=== PATIENT | female | born 1955 | race Caucasian/White ===

== ENCOUNTER 2022-12-15 14:39 | Inpatient (IN) | payer MEDICARE, BC ==
[2022-12-15 15:33] LABS: BASOPHILS ABSOLUTE AUTO 0.01 K/mm3 (0.01-0.08); BASOPHILS PERCENT AUTO 0.1 % (0.1-1.2); EOSINOPHILS ABSOLUTE AUTO 0.04 K/mm3 (0.04-0.36); EOSINOPHILS PERCENT AUTO 0.5 (0.7-5.8); HEMATOCRIT 43.6 % (34.1-44.9); IMMATURE GRAN ABSOLUTE AUTO 0.01 K/mm3 (0.00-0.10); IMMATURE GRAN PERCENT AUTO 0.1 % (<=1.0); LYMPHOCYTES ABSOLUTE AUTO 2.99 K/mm3 (1.18-3.74); LYMPHOCYTES PERCENT AUTO 39.8 % (19.3-51.7); MEAN CORPUSCULAR HEMOGLOBIN 29.5 pg (25.6-32.2); MEAN CORPUSCULAR HGB CONC 34.4 g/dl (32.2-35.5); MEAN CORPUSCULAR VOLUME 85.7 fl (79.4-94.8); MEAN PLATELET VOLUME 11.5 fl (9.4-12.3); MONOCYTES ABSOLUTE AUTO 0.62 K/mm3 (0.24-0.36); MONOCYTES PERCENT AUTO 8.3 % (4.7-12.5); NEUTROPHILS ABSOLUTE AUTO 3.84 K/mm3 (1.56-6.13); NEUTROPHILS PERCENT AUTO 51.2 % (34.0-71.1); PLATELET COUNT,PLT 216 K/mm3 (182-369); RED BLOOD CELL COUNT 5.09 M/mm3 (3.98-5.22); WHITE BLOOD CELL COUNT,WBC 7.51 K/mm3 (3.98-10.04)
[2022-12-15 15:49] LABS: ALANINE AMINOTRANSFERASE,ALT 43 U/L (14-59); ALBUMIN 3.9 g/dl (3.4-5.0); ALKALINE PHOSPHATASE 54 U/L (46-116); ANION GAP 16.5 (5-15); ASPARTATE AMNIOTRANSFERASE,AST 23 U/L (15-37); BILIRUBIN TOTAL 0.8 mg/dL (0.2-1.0); BLOOD UREA NITROGEN,BUN 29 mg/dL (7-18); BUN/CREATININE RATIO 18.1 (14-18); CALCIUM 10.2 mg/dL (8.5-10.1); CARBON DIOXIDE,CO2 25 mEq/L (21-32); CHLORIDE,CL 100 mEq/L (98-107); CREATININE 1.6 mg/dL (0.55-1.02); ESTIMATED GFR 35 mL/min (>60); GLUCOSE RANDOM 142 mg/dL (70-99); MAGNESIUM 1.7 mg/dL (1.8-2.4); POTASSIUM,K 3.5 mEq/L (3.5-5.1); SODIUM,NA 138 mEq/L (136-145); TROPONIN I HIGH SENSITIVITY 10 pg/mL (<=51); TSH 1.097 uIU/mL (0.358-3.74)
[2022-12-15 17:07] LABS: APPEARANCE,URINE CLEAR (Clear); BILIRUBIN,URINE NEGATIVE (Negative); COLOR,URINE YELLOW (Yellow); GLUCOSE,URINE NEGATIVE (Negative); KETONES,URINE NEGATIVE (Negative); LEUKOCYTE ESTERASE,URINE NEGATIVE (Negative); NITRITE,URINE NEGATIVE (Negative); OCCULT BLOOD,URINE NEGATIVE (Negative); PROTEIN,URINE NEGATIVE (Negative); UROBILINOGEN,URINE 0.2 (0.2-1.0)
[2022-12-15] MEDS ORDERED: Zolpidem 5 MG Tab PO PRN (17:44)
[2022-12-15] MEDS ORDERED: Docusate Sodium 100 MG Cap PO PRN (17:44)
[2022-12-15] MEDS ORDERED: oxyCODONE 5 MG Tab PO PRN (17:44)
[2022-12-15] MEDS ORDERED: Acetaminophen 325 MG Tab PO PRN (17:54)
[2022-12-15] MEDS ORDERED: Zolpidem 10 MG Tab PO PRN (17:54)
[2022-12-15] MEDS ORDERED: tiZANidine 4 MG Tab PO PRN (17:54)
[2022-12-15] MEDS ORDERED: Promethazine 25 MG Tab PO PRN (17:54)
[2022-12-15] MEDS ORDERED: Enoxaparin 40 MG/0.4 ML Syringe SUBCUT SCH (21:00)
[2022-12-15] MEDS ORDERED: amLODIPine 5 MG Tab PO SCH ×2 (22:00→22:29)
[2022-12-15] MEDS ORDERED: Sodium Bicarbonate 650 MG Tab PO SCH (22:00)
[2022-12-15] MEDS ORDERED: Carvedilol 6.25 MG Tab PO SCH (22:00)
[2022-12-15] MEDS ORDERED: Carvedilol 6.25 MG Tab ***OWN MED PO SCH (22:28)
[2022-12-15] MEDS ORDERED: Sodium Bicarbonate 650 MG Tab PO ONE (23:00)
[2022-12-15] MEDS ORDERED: ANASTROZOLE 1 MG PO ONE (23:00)
[2022-12-15] MEDS ORDERED: ZOLPIDEM 10 MG PO PRN (23:04)
[2022-12-15] MEDS ORDERED: Insulin Glargine,Human Rec. Analog 100 Units/ML 3 ML Pen SUBCUT ONE (23:15)
[2022-12-15] MEDS ORDERED: Diltiazem 125 MG in Sodium Chloride 0.9% 100 ML IV SCH (23:30)
[2022-12-16 05:32] LABS: ANION GAP 14.3 (5-15); BUN/CREATININE RATIO 18.7 (14-18); CALCIUM 9.5 mg/dL (8.5-10.1); CREATININE 1.5 mg/dL (0.55-1.02); EST CRCL DRUG DOSING (CG) 31.43 mL/min; POTASSIUM,K 3.3 mEq/L (3.5-5.1)
[2022-12-16 05:57] LABS: HEMATOCRIT 40.6 % (34.1-44.9); MEAN CORPUSCULAR HEMOGLOBIN 29.9 pg (25.6-32.2); MEAN CORPUSCULAR HGB CONC 34.5 g/dl (32.2-35.5); MEAN CORPUSCULAR VOLUME 86.6 fl (79.4-94.8); MEAN PLATELET VOLUME 11.4 fl (9.4-12.3); PLATELET COUNT,PLT 200 K/mm3 (182-369); RED BLOOD CELL COUNT 4.69 M/mm3 (3.98-5.22); WHITE BLOOD CELL COUNT,WBC 5.36 K/mm3 (3.98-10.04)
[2022-12-16] MEDS ORDERED: amLODIPine 5 MG Tab PO SCH (07:08)
[2022-12-16] MEDS ORDERED: Hydrochlorothiazide 12.5 MG Cap PO SCH (09:00)
[2022-12-16] MEDS ORDERED: Nortriptyline 10 MG Cap PO SCH (09:00)
[2022-12-16] MEDS ORDERED: Oxybutynin 5 MG Tab PO SCH ×2 (09:00)
[2022-12-16] MEDS: Carvedilol 6.25 MG Tab PO SCH ×2 (10:58→20:28)
[2022-12-16] MEDS: Aspirin 81 MG Tab.EC PO SCH (10:59)
[2022-12-16] MEDS: Sodium Bicarbonate 650 MG Tab PO SCH ×2 (10:59→20:28)
[2022-12-16] MEDS: Diltiazem IR 30 MG Tab PO SCH ×3 (13:02→23:36)
[2022-12-16] MEDS: METFORMIN HCL PO SCH (13:07)
[2022-12-16] MEDS: SITAGLIPTIN PHOS PO SCH (13:07)
[2022-12-16] MEDS: Potassium Chloride 20 MEQ Tab.ER PO SCH (14:39)
[2022-12-16] MEDS ORDERED: LYSINE 600 MG PO PRN (16:51)
[2022-12-16] MEDS: Apixaban 5 MG Tab PO SCH ×2 (18:18→23:34)
[2022-12-16] MEDS: Fenofibrate Nanocrystallized 145 MG Tab PO SCH (20:28)
[2022-12-16] MEDS: Anastrozole 1 MG Tab PO SCH (20:28)
[2022-12-16] MEDS: atorvaSTATin 40 MG Tab PO SCH (20:28)
[2022-12-16] MEDS: Oxybutynin 5 MG Tab PO SCH (20:29)
[2022-12-16] MEDS: Nortriptyline 10 MG Cap PO SCH (20:29)
[2022-12-16] MEDS: Furosemide 20 MG Tab PO SCH (20:29)
[2022-12-16] MEDS: amLODIPine 5 MG Tab PO SCH (20:29)
[2022-12-16] MEDS: Zolpidem 10 MG Tab PO PRN (20:30)
[2022-12-16] MEDS: Insulin Glargine,Human Rec. Analog 100 Units/ML 3 ML Pen SUBCUT SCH (20:39)
[2022-12-16] MEDS ORDERED: Semaglutide [Rybelsus] 7 MG Tablet PO SCH (21:00)
[2022-12-16] MEDS: Acetaminophen/HYDROcodone 325-5 MG Tab PO PRN (23:36)
[2022-12-17] MEDS: SITAGLIPTIN PHOS PO SCH (02:25)
[2022-12-17] MEDS: METFORMIN HCL PO SCH (02:25)
[2022-12-17] MEDS: Diltiazem IR 30 MG Tab PO SCH ×4 (06:17→23:36)
[2022-12-17] MEDS ORDERED: Sodium Chloride 0.9% 1,000 ML IV ONE (07:46)
[2022-12-17] MEDS: Carvedilol 6.25 MG Tab PO SCH ×2 (09:35→20:56)
[2022-12-17] MEDS: Sodium Bicarbonate 650 MG Tab PO SCH ×2 (09:37→20:59)
[2022-12-17] MEDS: Aspirin 81 MG Tab.EC PO SCH (09:37)
[2022-12-17] MEDS: Potassium Chloride 20 MEQ Tab.ER PO SCH (09:37)
[2022-12-17] MEDS: Apixaban 5 MG Tab PO SCH ×2 (09:37→20:56)
[2022-12-17] MEDS: Nortriptyline 10 MG Cap PO SCH (20:55)
[2022-12-17] MEDS: Furosemide 20 MG Tab PO SCH (20:56)
[2022-12-17] MEDS: atorvaSTATin 40 MG Tab PO SCH (20:56)
[2022-12-17] MEDS: amLODIPine 5 MG Tab PO SCH (20:58)
[2022-12-17] MEDS: Insulin Glargine,Human Rec. Analog 100 Units/ML 3 ML Pen SUBCUT SCH (20:59)
[2022-12-17] MEDS: Fenofibrate Nanocrystallized 145 MG Tab PO SCH (20:59)
[2022-12-17] MEDS: Zolpidem 10 MG Tab PO PRN (21:16)
[2022-12-17] MEDS: Anastrozole 1 MG Tab PO SCH (21:24)
[2022-12-17] MEDS: Oxybutynin 5 MG Tab PO SCH (21:25)
[2022-12-17] MEDS: Acetaminophen/HYDROcodone 325-5 MG Tab PO PRN (23:35)
[2022-12-18 05:55] LABS: BASOPHILS ABSOLUTE AUTO 0.02 K/mm3 (0.01-0.08); BASOPHILS PERCENT AUTO 0.3 % (0.1-1.2); EOSINOPHILS ABSOLUTE AUTO 0.04 K/mm3 (0.04-0.36); EOSINOPHILS PERCENT AUTO 0.7 (0.7-5.8); HEMATOCRIT 38.8 % (34.1-44.9); LYMPHOCYTES ABSOLUTE AUTO 3.04 K/mm3 (1.18-3.74); LYMPHOCYTES PERCENT AUTO 50.1 % (19.3-51.7); MEAN CORPUSCULAR HEMOGLOBIN 29.7 pg (25.6-32.2); MEAN CORPUSCULAR HGB CONC 33.5 g/dl (32.2-35.5); MEAN CORPUSCULAR VOLUME 88.6 fl (79.4-94.8); MEAN PLATELET VOLUME 11.6 fl (9.4-12.3); MONOCYTES ABSOLUTE AUTO 0.63 K/mm3 (0.24-0.36); MONOCYTES PERCENT AUTO 10.4 % (4.7-12.5); NEUTROPHILS ABSOLUTE AUTO 2.34 K/mm3 (1.56-6.13); NEUTROPHILS PERCENT AUTO 38.5 % (34.0-71.1); PLATELET COUNT,PLT 186 K/mm3 (182-369); RED BLOOD CELL COUNT 4.38 M/mm3 (3.98-5.22); WHITE BLOOD CELL COUNT,WBC 6.07 K/mm3 (3.98-10.04)
[2022-12-18 05:57] LABS: A/G RATIO 0.9 (1-2); ALBUMIN 3.2 g/dl (3.4-5.0); ANION GAP 11.7 (5-15); BILIRUBIN TOTAL 0.4 mg/dL (0.2-1.0); CALCIUM 8.7 mg/dL (8.5-10.1); CREATININE 1.3 mg/dL (0.55-1.02); EST CRCL DRUG DOSING (CG) 36.26 mL/min; MAGNESIUM 2.1 mg/dL (1.8-2.4); POTASSIUM,K 3.7 mEq/L (3.5-5.1); PROTEIN TOTAL,TP 6.6 g/dl (6.4-8.2)
[2022-12-18] MEDS ORDERED: Semaglutide [Rybelsus] 7 MG Tablet PO SCH (06:00)
[2022-12-18] MEDS: Diltiazem IR 30 MG Tab PO SCH ×2 (06:31→12:53)
[2022-12-18] MEDS: Sodium Bicarbonate 650 MG Tab PO SCH (09:19)
[2022-12-18] MEDS: Carvedilol 6.25 MG Tab PO SCH (09:19)
[2022-12-18] MEDS: Potassium Chloride 20 MEQ Tab.ER PO SCH (09:19)
[2022-12-18] MEDS: Apixaban 5 MG Tab PO SCH (09:19)
[2022-12-18] MEDS: Aspirin 81 MG Tab.EC PO SCH (09:19)
[2022-12-18] MEDS ORDERED: Diltiazem 180 MG Cap.CD PO ONE (12:00)
[2022-12-18 14:46] VITALS: BP 119/85; PULSE 82
== END 2022-12-18 13:40 | disposition home or self-care (01) | DRG 310 ==
LOC: JD.ED 14:39 → JD.MS 18:27 → OBSVTOIN 23:48 → JD.ICU 23:49 → JD.MS 12-17 12:04
PROVIDERS: ADMIT Hospitalist; ATTEND Hospitalist
DX: I48.91 Unspecified atrial fibrillation (principal); E66.9 Obesity, unspecified; E11.22 Type 2 diabetes mellitus with diabetic chronic kidney disease; I12.9 Hypertensive chronic kidney disease with stage 1 through stage 4 chronic kidney disease, or unspecified chronic kidney disease; E78.5 Hyperlipidemia, unspecified; N18.30 Chronic kidney disease, stage 3 unspecified; K21.9 Gastro-esophageal reflux disease without esophagitis; M19.90 Unspecified osteoarthritis, unspecified site; E86.0 Dehydration; Z98.890 Other specified postprocedural states; Z79.82 Long term (current) use of aspirin; Z79.899 Other long term (current) drug therapy; Z68.32 Body mass index [BMI] 32.0-32.9, adult; Z79.01 Long term (current) use of anticoagulants; Z88.8 Allergy status to other drugs, medicaments and biological substances; Z98.51 Tubal ligation status; Z87.11 Personal history of peptic ulcer disease
CPT/HCPCS: 36415; 80048; 80053; 81003; 82947; 83735; 84443; 84484; 85025; 85027; 93005; 93010; 99285; A9270-GY; J1650; J1815-GY; J3490; J7030

== ENCOUNTER 2023-04-01 19:48 | Emergency (ER) | payer MEDICARE, BC ==
[2023-04-01 20:30] LABS: BASOPHILS ABSOLUTE AUTO 0.02 K/mm3 (0.01-0.08); BASOPHILS PERCENT AUTO 0.3 % (0.1-1.2); EOSINOPHILS ABSOLUTE AUTO 0.04 K/mm3 (0.04-0.36); EOSINOPHILS PERCENT AUTO 0.7 (0.7-5.8); HEMATOCRIT 41.3 % (34.1-44.9); HEMOGLOBIN 13.6 gm/dl (11.2-15.7); IMMATURE GRAN ABSOLUTE AUTO 0.01 K/mm3 (0.00-0.10); IMMATURE GRAN PERCENT AUTO 0.2 % (<=1.0); LYMPHOCYTES ABSOLUTE AUTO 2.11 K/mm3 (1.18-3.74); MEAN CORPUSCULAR HEMOGLOBIN 29.8 pg (25.6-32.2); MEAN CORPUSCULAR HGB CONC 32.9 g/dl (32.2-35.5); MEAN CORPUSCULAR VOLUME 90.6 fl (79.4-94.8); MEAN PLATELET VOLUME 11.2 fl (9.4-12.3); MONOCYTES ABSOLUTE AUTO 0.66 K/mm3 (0.24-0.36); MONOCYTES PERCENT AUTO 11.3 % (4.7-12.5); NEUTROPHILS ABSOLUTE AUTO 3.02 K/mm3 (1.56-6.13); NEUTROPHILS PERCENT AUTO 51.5 % (34.0-71.1); PLATELET COUNT,PLT 177 K/mm3 (182-369); RED BLOOD CELL COUNT 4.56 M/mm3 (3.98-5.22); WHITE BLOOD CELL COUNT,WBC 5.86 K/mm3 (3.98-10.04)
[2023-04-01 20:37] LABS: PROTHROMBIN TIME 10.7 SECONDS (9.7-12.0)
[2023-04-01 20:38] LABS: PTT,PARTIAL THROMBOPLSTIN TIME 25.4 SECONDS (21.7-31.4)
[2023-04-01 20:39] LABS: D-DIMER QUANTITATIVE < 0.19 mg/L (0.19-0.50)
[2023-04-01 20:50] LABS: A/G RATIO 0.9 (1-2); ALBUMIN 3.6 g/dl (3.4-5.0); BILIRUBIN TOTAL 0.4 mg/dL (0.2-1.0); BUN/CREATININE RATIO 15.9 (14-18); CALCIUM 8.8 mg/dL (8.5-10.1); CREATININE 1.7 mg/dL (0.55-1.02); EST CRCL DRUG DOSING (CG) 27.35 mL/min; MAGNESIUM 1.8 mg/dL (1.8-2.4); PROTEIN TOTAL,TP 7.5 g/dl (6.4-8.2)
[2023-04-01] MEDS ORDERED: Orphenadrine 100 MG Tab.ER PO STA (22:03)
[2023-04-01 22:42] VITALS: BP 138/71; PULSE 84
== END 2023-04-01 22:35 | disposition home or self-care (01) ==
LOC: JD.ED 19:48
DX: S46.912A Strain of unspecified muscle, fascia and tendon at shoulder and upper arm level, left arm, initial encounter (principal); R07.89 Other chest pain; E78.00 Pure hypercholesterolemia, unspecified; K21.9 Gastro-esophageal reflux disease without esophagitis; I12.9 Hypertensive chronic kidney disease with stage 1 through stage 4 chronic kidney disease, or unspecified chronic kidney disease; N18.9 Chronic kidney disease, unspecified; E11.22 Type 2 diabetes mellitus with diabetic chronic kidney disease; E66.9 Obesity, unspecified; Z88.8 Allergy status to other drugs, medicaments and biological substances; Z79.82 Long term (current) use of aspirin; Z79.899 Other long term (current) drug therapy; Z79.4 Long term (current) use of insulin
CPT/HCPCS: 36415; 71046; 80053; 83735; 83880; 84484; 85025; 85379; 85610; 85730; 93005; 99285; A9270; 93010; 99284